=== PATIENT | male | born 2000 | race Caucasian/White ===

== ENCOUNTER 2019-05-23 20:34 | Emergency (ER) | payer OTHER ==
[~2019-05-23] VITALS: Ht 185.4 cm; Wt 68.0 kg
[~2019-05-23 20:34] MED LIST: AMOCLA500 PO; ARIP10 PO; ARIP15 PO; BACPOLTO30 TOP; Bactrim Ds Tab1 EACH PO; CEPH500 PO; CHOL10002; CODACE30 PO; CRUTCH4 USE; CRUTCH4 XX; Crutch1 EACH MISC; DIVA500EC PO; ERGO400 PO; FISH1000 PO; HYDACE5325 PO; Hibiclens120 ML EXT; IBUP600 PO; INTUNIV1 MG PO; Keflex500 MG PO; Norco 5-325 Ta1 EACH PO; Percocet 5-3251 EACH PO; RXCODACET PO; SERT50 MT; SULTRIDS PO
[2019-05-23] MEDS ORDERED: CEPH500 PO (23:05)
== END 2019-05-23 23:10 | disposition home or self-care (01) ==
LOC: ER 20:34
DX: S81.012A Laceration without foreign body, left knee, initial encounter (principal); W26.8XXA Contact with other sharp object(s), not elsewhere classified, initial encounter; F17.200 Nicotine dependence, unspecified, uncomplicated
CPT/HCPCS: 12002; 99282-25

== ENCOUNTER 2021-12-03 23:13 | Emergency (ER) | payer OTHER ==
[~2021-12-03] VITALS: Ht 180.3 cm; Wt 75.3 kg
[2021-12-03] MEDS ORDERED: CEPH500 PO (23:49)
== END 2021-12-04 02:03 | disposition home or self-care (01) ==
LOC: ER 23:13
DX: L03.115 Cellulitis of right lower limb (principal); F17.210 Nicotine dependence, cigarettes, uncomplicated
CPT/HCPCS: 99283; A9270

== ENCOUNTER 2022-02-23 23:36 | Emergency (ER) | payer OTHER ==
[~2022-02-23] VITALS: Ht 185.4 cm; Wt 72.6 kg
[2022-02-24] MEDS ORDERED: CYCL10 PO (05:29)
== END 2022-02-24 05:46 | disposition home or self-care (01) ==
LOC: ER 23:36
DX: M54.50 Low back pain, unspecified (principal); F17.210 Nicotine dependence, cigarettes, uncomplicated
CPT/HCPCS: 96372; 99283-25; A9270; J1885

== ENCOUNTER 2023-02-06 12:57 | Emergency (ER) | payer OTHER ==
[~2023-02-06] VITALS: Ht 185.4 cm; Wt 90.7 kg
[~2023-02-06 12:57] MED LIST changes: +CYCL10 PO
[2023-02-06] MEDS ORDERED: ZEBUTAL 50-3251 EA10 PO (15:34)
== END 2023-02-06 15:37 | disposition home or self-care (01) ==
LOC: ER 12:57
DX: G43.909 Migraine, unspecified, not intractable, without status migrainosus (principal); F17.210 Nicotine dependence, cigarettes, uncomplicated
CPT/HCPCS: 96374; 96375; 99283-25; J0780; J1200; J1885; J7030

== ENCOUNTER 2023-05-10 04:48 | Emergency (ER) | payer OTHER ==
[~2023-05-10] VITALS: Ht 182.9 cm; Wt 90.7 kg
[~2023-05-10 04:48] MED LIST changes: +ZEBUTAL 50-3251 EA10 PO
[2023-05-10 05:06] VITALS: BP 136/77
[2023-05-10 06:29] LABS: Influenza A, PCR NEGATIVE (NEGATIVE); Influenza B, PCR NEGATIVE (NEGATIVE); Resp Syncytial Virus, PCR NEGATIVE (NEGATIVE); SARS-Cov-2 (COVID-19) PCR, MMC NEGATIVE (NEGATIVE)
[2023-05-10] MEDS ORDERED: PSEU120ER PO (06:44)
[2023-05-10] MEDS ORDERED: Flonase 0.05% N16 GM (06:44)
== END 2023-05-10 06:51 | disposition home or self-care (01) ==
LOC: ER 04:48
PROVIDERS: Emergency Medicine
DX: J30.9 Allergic rhinitis, unspecified (principal); Z20.822 Contact with and (suspected) exposure to COVID-19; F17.210 Nicotine dependence, cigarettes, uncomplicated
CPT/HCPCS: 0241U; A9270

== ENCOUNTER 2024-06-17 00:07 | Emergency (ER) | payer OTHER ==
[~2024-06-17] VITALS: Ht 185.4 cm; Wt 74.8 kg
[~2024-06-17 00:07] MED LIST changes: +AMOCLA875 PO; +Flonase 0.05% N16 GM; +PSEU120ER PO
[2024-06-17 00:13] VITALS: BP 147/73
[2024-06-17] MEDS ORDERED: Amoxicillin 500 MG Cap PO ONE (00:15)
[2024-06-17] MEDS ORDERED: [UNRECOGNIZED DRUG - OTHER] OT (00:17)
[2024-06-17] MEDS ORDERED: Amoxicillin500 MG PO (00:17)
[2024-06-17] MEDS ORDERED: IBU600 MG PO (00:17)
== END 2024-06-17 00:24 ==
LOC: ER 00:07
DX: K08.89 Other specified disorders of teeth and supporting structures (principal); H61.23 Impacted cerumen, bilateral; F17.200 Nicotine dependence, unspecified, uncomplicated; Z79.2 Long term (current) use of antibiotics
CPT/HCPCS: 99282; A9270

== ENCOUNTER 2024-08-29 20:42 | Emergency (ER) | payer OTHER ==
[~2024-08-29] VITALS: Ht 175.3 cm; Wt 79.4 kg
[~2024-08-29 20:42] MED LIST changes: +Amoxicillin500 MG PO; +IBU600 MG PO; +[UNRECOGNIZED DRUG - OTHER] OT
[2024-08-29 21:10] VITALS: BP 147/84
[2024-08-29] MEDS ORDERED: AMOCLA875 PO (23:20)
[2024-08-29] MEDS ORDERED: Ketorolac Tromethamine 15mg Vial IM ONE (23:20)
[2024-08-29] MEDS ORDERED: Amoxicillin/Clavulanate K 875 MG Tab PO ONE (23:20)
== END 2024-08-29 23:33 | disposition home or self-care (01) ==
LOC: ER 20:42
DX: K08.89 Other specified disorders of teeth and supporting structures (principal); F17.210 Nicotine dependence, cigarettes, uncomplicated; Z79.2 Long term (current) use of antibiotics; Z79.899 Other long term (current) drug therapy
CPT/HCPCS: 96372; 99282-25; A9270; J1885

== ENCOUNTER 2025-02-24 20:19 | Emergency (ER) | payer OTHER ==
[~2025-02-24] VITALS: Ht 185.4 cm; Wt 90.7 kg
[2025-02-24 20:37] VITALS: BP 135/79
[2025-02-25] MEDS ORDERED: Lidocaine 4% 1 Patch TOP ONE (00:30)
[2025-02-25] MEDS ORDERED: Ibuprofen 600 MG Tab PO ONE (00:30)
[2025-02-25] MEDS ORDERED: Acetaminophen 500 MG Tab PO ONE (00:30)
[2025-02-25] MEDS ORDERED: DIAZ2 PO (01:31)
[2025-02-25] MEDS ORDERED: LIDO700A20 TOP (01:31)
== END 2025-02-25 01:45 | disposition home or self-care (01) ==
LOC: ER 20:19
DX: S33.5XXA Sprain of ligaments of lumbar spine, initial encounter (principal); F17.210 Nicotine dependence, cigarettes, uncomplicated; X58.XXXA Exposure to other specified factors, initial encounter
CPT/HCPCS: 72070; 72100; 99283-25; A9270